=== PATIENT | male | born 1980 | race Two or more races ===

== ENCOUNTER 2023-06-16 19:50 | Emergency (ER) | payer OTHER ==
[~2023-06-16] VITALS: Ht 175.3 cm; Wt 68.0 kg
== END 2023-06-16 22:04 | disposition home or self-care (01) ==
LOC: ER 19:51
DX: S91.114A Laceration without foreign body of right lesser toe(s) without damage to nail, initial encounter (principal); X58.XXXA Exposure to other specified factors, initial encounter; Y93.9 Activity, unspecified; Y92.9 Unspecified place or not applicable; Y99.9 Unspecified external cause status